=== PATIENT | male | born 1990 | race Caucasian/White ===

== ENCOUNTER 2020-02-24 01:51 | Emergency (ER) | payer SELFPAY ==
[~2020-02-24] VITALS: Ht 162.6 cm; Wt 65.0 kg
[2020-02-24 01:53] VITALS: BP 113/75
--- NOTE | 2020-02-24 01:55 | NUR ---
FOUND ASLEEP AT [facility],. PASSED OUT FROM DRINKING ETOH. HE DENIES TRAUMA OR COMPLAINTS.
--- NOTE | 2020-02-24 02:14 | NUR ---
PATIENT AMBULATED WITHOUT ASSISTANCE WITH A STEADY GAIT. AWARE.
--- NOTE | 2020-02-24 02:44 | NUR ---
PATIENT GIVEN D/C PAPERWORK AND AMBULATED TO DISCHARGE. HE IS TO BE SENT HOME IN A CAB TO [place]. HE IS AAO X 4, GCS 15, IN NO APPARENT DISTRESS.
== END 2020-02-24 02:47 ==
LOC: ED 02:18
DX: F10.120 Alcohol abuse with intoxication, uncomplicated (principal); Y90.0 Blood alcohol level of less than 20 mg/100 ml
CPT/HCPCS: 99283